=== PATIENT | female | born 1960 | race Caucasian/White ===

== ENCOUNTER 2023-02-20 11:26 | Emergency (ER) | payer BC ==
[~2023-02-20] VITALS: Ht 154.9 cm; Wt 80.0 kg
[2023-02-20 11:32] VITALS: TEMP 97
[2023-02-20 12:29] LABS: BASOPHILS # (AUTO) 0.1 X10'3 (0-0.2); BASOPHILS % (AUTO) 0.6 % (0-1); EOSINOPHILS # (AUTO) 0.1 X10'3 (0-0.9); EOSINOPHILS % (AUTO) 0.9 % (0-6); HEMATOCRIT 43.3 % (35.0-45.0); HEMOGLOBIN 14.4 g/dl (12.0-16.0); LYMPHOCYTES # (AUTO) 0.9 X10'3 (1.1-4.8); LYMPHOCYTES % (AUTO) 10.2 % (21-51); MEAN CORPUSCULAR HEMOGLOBIN 31.6 PG (27.0-31.0); MEAN CORPUSCULAR HGB CONC 33.2 g/dL (33.0-36.5); MEAN CORPUSCULAR VOLUME 95.2 FL (78-98); MEAN PLATELET VOLUME 8.9 FL (7.4-10.4); MONOCYTES # (AUTO) 0.5 X10'3 (0-0.9); MONOCYTES % (AUTO) 4.9 % (2-12); NEUTROPHILS # (AUTO) 7.7 X10'3 (1.8-7.7); NEUTROPHILS % (AUTO) 83.4 % (42-75); PLATELET COUNT 304 X10'3 (140-440); RED BLOOD COUNT 4.55 X10'6 (4.20-5.60); RED CELL DISTRIBUTION WIDTH 14.1 % (11.5-14.5); WHITE BLOOD COUNT 9.2 X10'3 (4.5-11.0)
--- NOTE | 2023-02-20 12:33 | NUR ---
pt here for flank pain pt sttaes started today and is 10/10 pain pt tried azo and was prescribed abx 2 weeks ago for uti, pt vomiting and in pain today.
[2023-02-20 12:43] LABS: ALANINE AMINOTRANSFERASE 34 U/L (12-78); ALBUMIN 3.9 G/DL (3.4-5.0); ALBUMIN/GLOBULIN RATIO 1.1 (1.1-1.5); ALKALINE PHOSPHATASE 86 IU/L (46-116); ANION GAP 11 (8-16); ASPARTATE AMINO TRANSFERASE 23 U/L (10-37); BILIRUBIN,TOTAL 1.2 MG/DL (0.1-1.0); BLOOD UREA NITROGEN 14 MG/DL (7-18); BUN/CREATININE RATIO 15.4 (10.0-20.0); CALCIUM 8.9 MG/DL (8.5-10.1); CHLORIDE 101 MMOL/L (99-107); CREATININE 0.91 MG/DL (0.40-0.90); GLUCOSE 111 MG/DL (70-104); POTASSIUM 3.6 MMOL/L (3.5-5.1); SODIUM 138 MMOL/L (135-145); TOTAL CARBON DIOXIDE 26.2 MMOL/L (24-32); TOTAL PROTEIN 7.6 G/DL (6.4-8.2); eCRCL 47 ML/MIN; eGFR 62 ML/MIN
[2023-02-20 13:06] LABS: CLARITY,URINE CLOUDY (Clear); COLOR,URINE ORANGE (Yellow); UA COLLECTION TYPE NON-SPECIFIED
[2023-02-20 13:13] LABS: MUCUS STRANDS MANY /LPF (Neg); SQUAMOUS EPITHELIAL CELL,UR MANY /LPF (FEW)
[2023-02-20 13:14] LABS: FINE GRANULAR CAST 0-3 /LPF (NEGATIVE); RBC,URINE 20-50 /HPF (0-2)
[2023-02-20 13:15] LABS: CAL OXALATE CRYSTALS 4+ /HPF (NEGATIVE)
[2023-02-20 13:16] LABS: BACTERIA,URINE FEW /HPF (Neg); TRANSITIONAL EPI CELLS,URINE MODERATE /HPF
[2023-02-20] MEDS ORDERED: iohexol 300mg/ml 100ml inj. ONE (14:13)
[2023-02-20] MEDS ORDERED: morphine 4 MG/ML inj SYRINge IV ONE (14:55)
[2023-02-20] MEDS ORDERED: ondansetron/PF 4mg/2ml inj IV ONE (14:55)
[2023-02-20] MEDS ORDERED: ketorolac trometh. 30mg/ml inj. IV ONE (14:55)
[2023-02-20] MEDS ORDERED: CefTRIAXone 2gm/D5W 50ml BAG 50 ML IV ONE (14:55)
[2023-02-20] MEDS ORDERED: tamsulosin 0.4mg capsule PO ONE (14:55)
[2023-02-20] MEDS ORDERED: normal saline 1000ML IV soln IV ONE (14:55)
[2023-02-20] MEDS ORDERED: tamsulosin 0.4mg capsule PO SCH (14:55)
[2023-02-20] MEDS ORDERED: FLO0.4C PO (16:00)
[2023-02-20] MEDS ORDERED: SULF1TAB45 PO (16:00)
[2023-02-20] MEDS ORDERED: ONDA4TAB12 PO (16:00)
[2023-02-20] MEDS ORDERED: OXYC-145 PO (16:00)
[2023-02-20 17:08] VITALS: BP 133/78; PULSE 74; RESP 17; O2SAT 95
--- NOTE | 2023-02-20 18:58 | NUR ---
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
== END 2023-02-20 17:07 | disposition home or self-care (01) ==
LOC: ER 11:27
DX: N20.1 Calculus of ureter (principal)
CPT/HCPCS: 36415; 74177; 80053; 81001; 85025; 96365; 96375; 99285; J0696; J1885; J2270; J2405; J3490; J7030; Q9967

== ENCOUNTER 2023-07-27 08:51 | Outpatient (CLI) | payer MEDICARE, BC ==
[~2023-07-27 08:51] MED LIST: ONDA4TAB12 PO; OXYC-145 PO
== END 2023-07-27 23:59 | disposition home or self-care (01) ==
LOC: MRI 08:51
PROVIDERS: ATTEND Pediatrics Sports Medicine
DX: M17.12 Unilateral primary osteoarthritis, left knee (principal); M25.462 Effusion, left knee; M25.762 Osteophyte, left knee; M25.562 Pain in left knee
CPT/HCPCS: 73721